=== PATIENT | male | born 2000 | race African-American/Black ===

== ENCOUNTER 2023-12-19 08:28 | Emergency (ER) | payer SELFPAY ==
[~2023-12-19] VITALS: Ht 175.3 cm; Wt 56.6 kg
[2023-12-19 09:14] LABS: Urine Bacteria None Seen /hpf (None Seen)
[2023-12-19 09:31] LABS: Urine Blood 3+ /uL (Negative); Urine Clarity Ex.Turbid (Clear); Urine Color Light-Red (Yellow); Urine Protein, UAD 1+ (Negative); Urine Specific Gravity 1.007 (1.001-1.035); Urine Urobilinogen Normal (Negative); Urine WBC 2 /hpf (0 - 3); Urine pH 5.5 (5.0-9.0)
[2023-12-19 10:55] VITALS: BP 137/67; PULSE 94; RESP 18; TEMP 98.7; O2SAT 99
[2023-12-19] MEDS ORDERED: BACDST PO (11:04)
[2023-12-19] MEDS: cefTRIAXone 1GM/50ML D5W 50 ML IV ONE (11:10)
[2023-12-19] MEDS: SODIUM CHLORIDE 0.9% 1,000 ML IV ONE (11:10)
== END 2023-12-19 12:19 | disposition home or self-care (01) ==
LOC: ER 08:28
DX: N39.0 Urinary tract infection, site not specified (principal); N20.0 Calculus of kidney
CPT/HCPCS: 81001; 96365; 99284; J0696; J7030